=== PATIENT | female | born 1955 | race Asian ===

== ENCOUNTER 2018-05-22 08:03 | Day surgery (SDC) | payer OTHER ==
[~2018-05-22] VITALS: Ht 157.5 cm; Wt 56.7 kg
[2018-05-22 09:05] VITALS: BP 146/72
[2018-05-22 14:33] VITALS: BP 111/70
== END 2018-05-22 15:00 | disposition home or self-care (01) ==
LOC: DS 08:03 → OR 11:30 → GI 11:30 → DS 15:00
PROVIDERS: Internal Medicine Gastroenterology
PROC: 0DBN8ZZ Excision of Sigmoid Colon, Via Natural or Artificial Opening Endoscopic (ICD-10-PCS; principal; 2018-05-22 11:30)
DX: Z12.11 Encounter for screening for malignant neoplasm of colon (principal); D12.5 Benign neoplasm of sigmoid colon; K59.00 Constipation, unspecified; Z80.0 Family history of malignant neoplasm of digestive organs; Z68.24 Body mass index [BMI] 24.0-24.9, adult
CPT/HCPCS: 45378; J1200; J1610; J2250; J2310; J3010; J3490